=== PATIENT | male | born 2000 | race Caucasian/White ===

== ENCOUNTER 2024-01-08 19:33 | Emergency (ER) | payer SELFPAY ==
[2024-01-08] MEDS ORDERED: Loratadine 10 MG TAB ONE (20:21)
[2024-01-08] MEDS ORDERED: predniSONE 20 MG TAB ONE (20:21)
[2024-01-08] MEDS ORDERED: predniSONE 10 MG TAB ONE (20:21)
== END 2024-01-08 20:55 | disposition home or self-care (01) ==
LOC: MADERS 19:33
DX: T78.40XA Allergy, unspecified, initial encounter (principal)
CPT/HCPCS: 99282; J7512

== ENCOUNTER 2024-01-16 07:37 | Emergency (ER) | payer SELFPAY | END 2024-01-16 08:10 | disposition home or self-care (01) | LOC: MADERS 07:37 | DX: L73.9 Follicular disorder, unspecified (principal) | CPT/HCPCS: 99282 ==